=== PATIENT | male | born 2005 | race Caucasian/White ===

== ENCOUNTER 2024-07-27 17:47 | Emergency (ER) | payer OTHER ==
[2024-07-27 17:52] VITALS: BP 136/73; PULSE 97; RESP 20; TEMP 99.3; BMI 27.4
[2024-07-27] MEDS ORDERED: predniSONE 20 MG TABLET (UD) ONE (18:46)
[2024-07-27] MEDS ORDERED: ALBUTEROL SO4 2.5/IPRATROPIUM 0.5 INH SOL 3 ML VIAL.NEB. NEB ONE ×2 (18:46→19:32)
[2024-07-27] MEDS: predniSONE 20 MG TABLET (UD) PO ONE (18:55)
[2024-07-27] MEDS: ALBUTEROL SO4 2.5/IPRATROPIUM 0.5 INH SOL 3 ML VIAL.NEB. NEB SCH (18:56)
[2024-07-27 19:54] LABS: THROAT:GRP A STREP NOT DETECTED (NOTDETECTED)
== END 2024-07-27 21:15 | disposition home or self-care (01) ==
LOC: JERFT 17:47
PROC: 3E0F7GC Introduction of Other Therapeutic Substance into Respiratory Tract, Via Natural or Artificial Opening (ICD-10-PCS; principal; 2024-07-27)
DX: R06.02 Shortness of breath (principal); J45.909 Unspecified asthma, uncomplicated; B34.9 Viral infection, unspecified
CPT/HCPCS: 0241U-QW; 71046-TC-FY; 87651; 99284-25